=== PATIENT | male | born 1950 | race Caucasian/White ===

== ENCOUNTER → 2016-06-28 | Outpatient (CLI) | payer MEDICARE ==
[2016-06-28 10:35] LABS: Basophils % (A) 1 %; CH 30.9; CHCM 34.5; Eosinophils # (A) 0.1 k/uL (0-0.7); Eosinophils % (A) 3 %; HCT 49.5 % (39.0-53.0); HGB 16.7 gm/dL (13.0-17.5); Luc # (Auto) 0.14; Luc % (Auto) 2; Lymphocytes # (A) 2.1 k/uL (1.0-4.8); Lymphocytes % (A) 37 %; MCH 30.3 pg (25.0-35.0); MCHC 33.8 g/dL (31.0-37.0); MCV 89.8 fL (80.0-100.0); Mean Platelet Volume 6.5; Monocytes # (A) 0.4 k/uL (0-1.0); Monocytes % (A) 6 %; Neutrophils # (A) 2.9 k/uL (1.3-7.7); Neutrophils % (A) 52 %; RBC 5.52 m/uL (4.30-5.90); RDW 13.6 % (11.5-15.5); WBC 5.7 k/uL (3.8-10.6); WBC (Perox) 6.08
[2016-06-28 10:45] LABS: Bilirubin, Delta 0.3 mg/dL (0.0-0.2); Total Bilirubin 1.3 mg/dL (0.2-1.3); Total Protein 7.6 g/dL (6.3-8.2)
[2016-06-30 15:18] LABS: Hepatits C Virus RNA, Quant <12 IU/mL (<12); LOG HCV IU/mL <1.08 (<1.08)
== END | disposition home or self-care (01) ==
LOC: LABWHC1 09:59
PROVIDERS: ATTEND Physician Assistant
DX: B18.2 Chronic viral hepatitis C (principal)
CPT/HCPCS: 36415; 80076; 85025; 87522

== ENCOUNTER → 2016-12-31 | Outpatient (CLI) | payer MEDICARE ==
[2016-12-31 10:17] LABS: Basophils % (A) 1 %; Eosinophils # (A) 0.2 k/uL (0-0.7); Eosinophils % (A) 2 %; HCT 51.1 % (39.0-53.0); HDW 2.54; HGB 17.2 gm/dL (13.0-17.5); Luc # (Auto) 0.12; Luc % (Auto) 2; Lymphocytes % (A) 30 %; MCH 30.8 pg (25.0-35.0); MCHC 33.6 g/dL (31.0-37.0); MCV 91.5 fL (80.0-100.0); Mean Platelet Volume 6.6; Monocytes # (A) 0.3 k/uL (0-1.0); Monocytes % (A) 5 %; Neutrophils % (A) 61 %; RBC 5.59 m/uL (4.30-5.90); RDW 13.3 % (11.5-15.5); WBC 6.6 k/uL (3.8-10.6); WBC (Perox) 6.37
[2016-12-31 10:35] LABS: Bilirubin, Delta 0.2 mg/dL (0.0-0.2); Total Bilirubin 1.5 mg/dL (0.2-1.3); Total Protein 7.3 g/dL (6.3-8.2)
[2017-01-03 14:08] LABS: Hepatits C Virus RNA, Quant <12 IU/mL (<12); LOG HCV IU/mL <1.08 (<1.08)
== END | disposition home or self-care (01) ==
LOC: LABWHC1 09:19
PROVIDERS: ATTEND Physician Assistant
DX: B18.2 Chronic viral hepatitis C (principal)
CPT/HCPCS: 36415; 80076; 85025; 87522

== ENCOUNTER → 2017-07-01 | Outpatient (CLI) | payer MEDICARE ==
--- NOTE | 2017-07-01 10:50 | FL ---
EXAMINATION: Upper GI with small bowel follow through DATE: 07/01/2017 CLINICAL INDICATION: 67-year-old male right upper quadrant pain with nausea, vomiting, and some const ipation ongoing for 3 years. COMPARISON: Correlation CT 10/03/2015 Total Fluoroscopy Time: 1 minute 54 seconds. Total images: 72 FINDINGS: Blackjack Supervisor image shows possible staghorn calculus measuring 2.0 cm involving the right kidney/collecting s ystem. The esophagus has a normal course, caliber, and mucosa. Mild tertiary peristaltic contractions are de monstrated. No hiatal hernia is identified. There is no gastroesophageal reflux identified with Valsalva or positional maneuvers. The stomach and duodenum are free of any persistent filling defect and demonstrate a normal mucosal p attern. Following administration of barium, serial films were carried out to 1 hour. Barium is seen to reach the colon. Loops of jejunum and ileum are compressed and examined under fluoroscopy. The small bowel loops have a normal-caliber. Mucosal pattern is within normal limits. No intrinsic or extrinsic process is suspected. IMPRESSION: 1. Aside from some mild tertiary peristaltic waves in the esophagus, likely age-related change, amanda l upper GI and small bowel examination 2. Right renal calculus now measures 2 cm, larger from 2016. This may represent a staghorn calculus i n the collecting system.
== END | disposition home or self-care (01) ==
LOC: RADFLMAIN 07:39
PROVIDERS: ATTEND Internal Medicine
DX: R10.31 Right lower quadrant pain (principal)
CPT/HCPCS: 74245

== ENCOUNTER → 2017-08-30 | Outpatient (CLI) | payer MEDICARE ==
[2017-08-30 08:24] LABS: Basophils % (A) 1 %; Eosinophils # (A) 0.1 k/uL (0-0.7); Eosinophils % (A) 2 %; HCT 49.2 % (39.0-53.0); HGB 16.6 gm/dL (13.0-17.5); Lymphocytes # (A) 2.1 k/uL (1.0-4.8); Lymphocytes % (A) 33 %; MCH 30.5 pg (25.0-35.0); MCHC 33.7 g/dL (31.0-37.0); MCV 90.5 fL (80.0-100.0); Mean Platelet Volume 6.5; Monocytes # (A) 0.3 k/uL (0-1.0); Monocytes % (A) 5 %; Neutrophils # (A) 3.8 k/uL (1.3-7.7); Neutrophils % (A) 58 %; Platelet Count 172 k/uL (150-450); RBC 5.44 m/uL (4.30-5.90); RDW 14.5 % (11.5-15.5); WBC 6.5 k/uL (3.8-10.6)
[2017-08-30 08:32] LABS: Appearance,Urine Cloudy (Clear); Bilirubin,Urine Negative (Negative); Blood,Urine Trace (Negative); Color,Urine Yellow; Glucose,Urine (UA) Negative (Negative); Ketones,Urine Negative (Negative); Leukocyte Esterase,Urine Negative (Negative); Mucus,Urine Moderate /hpf; Nitrite,Urine Negative (Negative); Protein,Urine 1+ (Negative); RBC,Urine 3 /hpf (0-5); Specific Gravity,Urine 1.023 (1.001-1.035); Squamous Epithelial Cell,Urine <1 /hpf (0-4); WBC,Urine 6 /hpf (0-5)
[2017-08-30 08:49] LABS: Calcium 9.5 mg/dL (8.4-10.2); Potassium 4.4 mmol/L (3.5-5.1)
== END | disposition home or self-care (01) ==
LOC: LABPAT 07:46
PROVIDERS: ATTEND Urology
DX: Z01.818 Encounter for other preprocedural examination (principal); N20.0 Calculus of kidney; B19.20 Unspecified viral hepatitis C without hepatic coma; Z79.899 Other long term (current) drug therapy; Z01.812 Encounter for preprocedural laboratory examination
CPT/HCPCS: 36415; 80048; 81001; 85025; 87086; 93005

== ENCOUNTER 2017-09-07 06:07 | Day surgery (SDC) | payer MEDICARE ==
[2017-09-01 12:35] VITALS: BMI 30.2
[~2017-09-07 06:07] MED LIST: DEXAMETHASONE SOD PHOSPHATE 10 MG/ML 1 ML VIAL IV ONE; LIDOCAINE 1% 20 ML VIAL (10MG/ML) FOR IV START INTRADERMA PRN; MIDAZOLAM 2 MG/2 ML VIAL IV PRN; SCOPOLAMINE 1.5MG/72HR PATCH TRANSDERM ONE; ceFAZolin 1,000 MG in DEXTROSE/WATER 1 50ML.BAG IV ONE; fentaNYL (PF) 50 MCG/ML 2 ML AMP IV PRN
[2017-09-07] MEDS: LACTATED RINGERS 1,000 ML IV SCH (06:56)
[2017-09-07] MEDS ORDERED: SUCCINYLCHOLINE CHLORIDE 100 MG/5 ML SYR IV ONE (07:36)
[2017-09-07] MEDS ORDERED: ePHEDrine SULFATE/0.9% NACL/PF 50 MG/5 ML SYRINGE IV ONE (07:36)
[2017-09-07] MEDS ORDERED: GLYCOPYRROLATE 0.2 MG/ML 2 ML VIAL ONE (07:36)
[2017-09-07] MEDS ORDERED: ROCURONIUM BROMIDE 10 MG/ML 10 ML VIAL IV ONE (07:36)
[2017-09-07] MEDS ORDERED: fentaNYL (PF) 50 MCG/ML 2 ML AMP ONE (07:36)
[2017-09-07] MEDS ORDERED: WATER FOR INJECTION, STERILE 10 ML VIAL IV ONE (07:36)
[2017-09-07] MEDS ORDERED: MIDAZOLAM 2 MG/2 ML VIAL ONE (07:36)
[2017-09-07] MEDS ORDERED: PROPOFOL 10 MG/ML 20 ML VIAL IV ONE (07:36)
[2017-09-07] MEDS ORDERED: NEOSTIGMINE 1 MG/ML 10 ML VIAL ONE (07:36)
[2017-09-07] MEDS ORDERED: LACTATED RINGERS 1,000 ML IV ONE (08:15)
[2017-09-07] MEDS ORDERED: IOPAMIDOL-370 50ML BTL MISCELLANE ONE (08:21)
--- NOTE | 2017-09-07 08:58 | XR ---
EXAMINATION TYPE: XR KUB DATE OF EXAM: 09/07/2017 COMPARISON: NONE INDICATION: Urinary calculus presurgical TECHNIQUE: Single view abdomen supine view FINDINGS: There is a nonspecific bowel gas pattern present. Air is within small bowel loops as well as the colo n. Psoas margins are normal. No organomegaly is present. There appears to be a conglomeration of several small lymph nodes in tight approximation with a total volume of approximately 1.6 x 1.1 cm in size at the right renal pelvis. Additional suspicious calcif ications are not identified. Small phlebolith is likely within the left hemipelvis. IMPRESSION: 1. Technically grouped or irregular right renal pelvic calcification measuring approximately 1.6 x 1. 1 cm.
[2017-09-07] MEDS ORDERED: MAG HYDROX/AL HYDROX/SIMETH 30 ML CUP PO PRN (09:41)
[2017-09-07] MEDS ORDERED: ONDANSETRON 4 MG/2 ML VIAL IVP PRN (09:41)
[2017-09-07] MEDS ORDERED: ACETAMINOPHEN TAB 325 MG TAB PO PRN (09:41)
[2017-09-07] MEDS ORDERED: NALOXONE 0.4 MG/ML 1 ML VIAL IV PRN (09:42)
[2017-09-07] MEDS ORDERED: HYDROmorphone PCA 5 MG/25 ML SYRINGE IV PRN (09:42)
--- NOTE | 2017-09-07 09:47 | P.OP ---
Date of Procedure: 09/07/17 Preoperative Diagnosis: Right renal calculi large Postoperative Diagnosis: Same Procedure(s) Performed: Cystoscopy, placement of 5-Turkmen occluding balloon catheter right, percutaneous nephrostomy (Dr. Sarmiento) percutaneous nephrostolithotomy with ultrasound, placement of 10 J nephrostomy Anesthesia: NETO Surgeon: Mikel Bentley Estimated Blood Loss (ml): 200 Pathology: other (Stone) Condition: stable Disposition: PACU Indications for Procedure: The patient is a 67-year-old gentleman with a 2 cm and 1 cm right renal pelvic stones and comes for percutaneous nephrostolithotomy Description of Procedure: Patient is brought to the operating suite. He is given a general endotracheal anesthesia on the transport gurney. He's placed in a frog position with a sterile prep and drape. Cystoscopy with a 22-Turkmen sheath and Foroblique lens identifies a normal urethra, the prostate is not obstructing. The right ureteral orifice is identified and intubated with a 5-Turkmen occluding balloon catheter. This is passed up into the renal pelvis The patient is placed in a prone position with care to airways and extremities. Dr. Sarmiento of radiology performed percutaneous access to a right middle pole calyx. We dilate the tract to 30-Turkmen. I passed into the renal pelvis and find a 2 cm william stone that is broken up into small pieces with ultrasound and removed. Then there is a another single centimeter stone that is grasped and removed. Then pass the flexible nephroscope throughout the collecting system as well as intraoperative nephroscopy and see no remaining stones. A 10-Turkmen J nephrostomy tubes placed over the working wire. It is placed into the renal pelvis. It is secured the skin with 2-0 silk. The sheath is removed the ureteral catheters removed the patient is awakened and returned recovery room good condition. Blood loss is approximately 200 mL
[2017-09-07] MEDS: HYDROmorphone 1 MG/ML 1 ML SYRINGE IVP ONE ×2 (10:10→10:15)
[2017-09-07] MEDS: KETOROLAC 30 MG/ML 1 ML VIAL IVP PRN ×2 (10:10→15:39)
[2017-09-07] MEDS: MEPERIDINE 50 MG/ML SYRINGE IVP ONE ×2 (10:21→10:29)
--- NOTE | 2017-09-07 10:45 | FL ---
EXAMINATION TYPE: FL Perc Nephrostomy New Access DATE OF EXAM: 09/07/2017 COMPARISON: NONE HISTORY: Right-sided nephrolithiasis. PROCEDURE: Maximal barrier technique was utilized. The skin overlying the right kidney was localized using fluo roscopy and the overlying skin prepped and draped. Lidocaine used for local anesthesia. Skin ramya w as made with a scalpel. Access was gained under fluoroscopy, following placement of a ureteral occlu lynnette balloon by the referring clinician and instillation of air in the renal collecting system with a 21-gauge needle to the kidney. A suitable posterior calyx was chosen. A 0.018 inch wire was LinguaSys. Ureter was negotiated with a angled Glidewire and Kumpe catheter. The access site was dilated an d subsequently a sheath was advanced into the renal pelvis following dilation with balloon along the tract. Urine returned in the hub of the catheter. The patient underwent nephrolithotomy by the referr ing clinician. The patient remained in stable condition without complication. The patient was disc harged to observation. 14 minutes 51 seconds fluoroscopy time, 2 intraoperative C-arm images document the procedure IMPRESSION: STATUS POST NEPHROSTOMY PLACEMENT FOR NEPHROLITHOTOMY WITH FLUOROSCOPIC GUIDANCE. THIS PROCEDURE PER FORMED BY THE UNDERSIGNED.
[2017-09-07] MEDS ORDERED: NICOTINE 21MG/24HR PATCH TRANSDERM SCH (11:15)
[2017-09-07] MEDS ORDERED: NICODERM CQ TOPICAL SCH (11:46)
[2017-09-07] MEDS: DEXTROSE 5%-0.45% NACL 1,000 ML IV SCH ×2 (12:08→19:26)
[2017-09-07] MEDS ORDERED: SODIUM CHLORIDE 0.9% 500 ML IV ONE ×2 (13:27→15:18)
[2017-09-07 15:51] LABS: Basophils % (A) 0 %; Eosinophils % (A) 0 %; HCT 42.8 % (39.0-53.0); HGB 14.5 gm/dL (13.0-17.5); Lymphocytes # (A) 0.6 k/uL (1.0-4.8); Lymphocytes % (A) 6 %; MCH 30.4 pg (25.0-35.0); MCV 89.5 fL (80.0-100.0); Mean Platelet Volume 6.3; Monocytes # (A) 0.3 k/uL (0-1.0); Monocytes % (A) 3 %; Neutrophils # (A) 9.1 k/uL (1.3-7.7); Neutrophils % (A) 90 %; Platelet Count 172 k/uL (150-450); RBC 4.78 m/uL (4.30-5.90); RDW 13.8 % (11.5-15.5); WBC 10.1 k/uL (3.8-10.6)
[2017-09-07] MEDS ORDERED: SODIUM CHLORIDE 0.9% 1,000 ML IV ONE (17:06)
[2017-09-08 02:58] VITALS: RESP 16
[2017-09-08] MEDS: LACTATED RINGERS 1,000 ML IV SCH (05:07)
[2017-09-08] MEDS: DEXTROSE 5%-0.45% NACL 1,000 ML IV SCH ×2 (05:11→08:07)
--- NOTE | 2017-09-08 06:38 | P.DS ---
Providers Attending physician: Mikel Bentley Primary care physician: Leonard Morse Hospital Course: The patient was admitted 09/07/2017 for a percutaneous nephrostolithotomy to a large right renal stone. The patient underwent this without problems. The procedure he moved all the stone. Postoperatively he did well. His urine cleared overnight. This morning he feels well. His pain is under control. His diet is regular. He'll be discharged home with the nephrostomy tube. He' ll follow-up in the office on Tuesday for nephrostomy tube removal. He is given a prescription of [place] for pain. Postoperative instructions been given. Patient Condition at Discharge: Good Plan - Discharge Summary Discharge Rx Participant: Yes New Discharge Prescriptions: New Hydrocodone/Acetaminophen [[place] 5-325] 1 tab PO Q6HR PRN 3 Days #12 tab PRN Reason: Pain Discharge Medication List Hydrocodone/Acetaminophen [[place] 5-325] 1 tab PO Q6HR PRN 3 Days #12 tab [Rx] Follow up Appointment(s)/Referral(s): Mikel Bentley MD [STAFF PHYSICIAN] - 1 Week Activity/Diet/Wound Care/Special Instructions: home with nephrostomy tube Discharge Disposition: HOME SELF-CARE
[2017-09-08] MEDS ORDERED: HYDROcodone/APAP 5-325MG 1 EACH TAB PO PRN (07:25)
[2017-09-08 07:52] VITALS: BP 122/59; PULSE 68; TEMP 98.3
== END 2017-09-08 12:00 | disposition home or self-care (01) ==
LOC: OR 06:07 → 3SUR 09:30 → OR 09-08 12:00
PROVIDERS: ATTEND Urology
DX: N20.0 Calculus of kidney (principal); B19.20 Unspecified viral hepatitis C without hepatic coma; F17.210 Nicotine dependence, cigarettes, uncomplicated; Z85.828 Personal history of other malignant neoplasm of skin; Z87.442 Personal history of urinary calculi
CPT/HCPCS: 50080; 52005; 94760; 94762; 85025; 82365; 50432; 74018; C1769 ×3; C2628; C1894; C1729; J2250; J1100; J2710; J2175; J2405; J3010; J1885; J1170 ×2; J0690; J0330; J2704; Q9967; 86850; 86900; 86901

== ENCOUNTER 2017-09-10 11:51 | Emergency (ER) | payer MEDICARE ==
[2017-09-10 11:57] VITALS: RESP 18
[2017-09-10 12:38] LABS: Basophils % (A) 0 %; Eosinophils # (A) 0.1 k/uL (0-0.7); Eosinophils % (A) 2 %; HCT 38.1 % (39.0-53.0); HGB 12.9 gm/dL (13.0-17.5); Lymphocytes # (A) 1.7 k/uL (1.0-4.8); Lymphocytes % (A) 31 %; MCH 29.9 pg (25.0-35.0); MCV 88.1 fL (80.0-100.0); Mean Platelet Volume 6.9; Monocytes # (A) 0.3 k/uL (0-1.0); Monocytes % (A) 6 %; Neutrophils # (A) 3.1 k/uL (1.3-7.7); Neutrophils % (A) 59 %; Platelet Count 156 k/uL (150-450); RBC 4.33 m/uL (4.30-5.90); RDW 13.3 % (11.5-15.5); WBC 5.3 k/uL (3.8-10.6)
[2017-09-10 12:45] LABS: Albumin 3.8 g/dL (3.5-5.0); Calcium 9.1 mg/dL (8.4-10.2); Magnesium 2.3 mg/dL (1.6-2.3); Potassium 4.3 mmol/L (3.5-5.1); Total Bilirubin 1.1 mg/dL (0.2-1.3); Total Protein 6.1 g/dL (6.3-8.2)
[2017-09-10 12:54] LABS: Creatine Kinase 70 U/L (55-170)
[2017-09-10 12:55] LABS: INR 1.1 (<1.2); Partial Thromboplastin Time 21.9 sec (22.0-30.0); Prothrombin Time 10.5 sec (9.0-12.0)
[2017-09-10 13:05] LABS: Appearance,Urine Clear (Clear); Bilirubin,Urine Negative (Negative); Blood,Urine Moderate (Negative); Color,Urine Light Yellow; Glucose,Urine (UA) Negative (Negative); Ketones,Urine Negative (Negative); Leukocyte Esterase,Urine Trace (Negative); Nitrite,Urine Negative (Negative); Protein,Urine Negative (Negative); RBC,Urine 5 /hpf (0-5); Specific Gravity,Urine 1.002 (1.001-1.035); Urobilinogen,Urine <2.0 mg/dL (<2.0); WBC,Urine 5 /hpf (0-5)
[2017-09-10 13:07] LABS: Creatine Kinase MB 0.7 ng/mL (0.0-2.4); Troponin I <0.012 ng/mL (0.000-0.034)
[2017-09-10 13:32] VITALS: BP 135/72; PULSE 87
--- NOTE | 2017-09-10 13:40 | ED ---
General Adult HPI - General Chief complaint: Urogenital Stated complaint: POST OP BLOOD CLOTS IN CATHETER Time Seen by Provider: 09/10/17 11:59 Source: patient, family, RN notes reviewed, old records reviewed Mode of arrival: wheelchair Limitations: no limitations - History of Present Illness Initial comments: 67-year-old male presents with right flank pain. Patient is 3 days postop percutaneous nephrostomy tube and removal of large nephrolithiasis from the renal pelvis. Patient states he has been doing well postoperatively. He has had some blood clots and blood drainage into his nephrostomy tube collection bag. Today he had some worsening flank pain, he took her [place] which improved his pain. He did notice at this time. He had a blood clot in the distal end of the catheter. This was removed and his symptoms seemed to improve with both pain medication and increased urinary flow. He is asymptomatic at the time my evaluation. No fever or chills. Normal urine output. Patient is scheduled to see urology on Tuesday for follow-up. - Related Data Previous Rx's Medication Instructions Recorded Hydrocodone/Acetaminophen [[place] 1 tab PO Q6HR PRN 3 Days #12 tab 09/08/17 5-325] Docusate [Colace] 100 mg PO BID #30 capsule 09/10/17 Allergies Allergy/AdvReac Type Severity Reaction Status Date / Time No Known Allergies Allergy Verified 09/10/17 11:54 Review of Systems ROS Statement: Those systems with pertinent positive or pertinent negative responses have been documented in the HPI. ROS Other: All systems not noted in ROS Statement are negative. Past Medical History Additional Past Medical History / Comment(s): kidney stone retreival with neprostomy placed History of Any Multi-Drug Resistant Organisms: None Reported Additional Past Surgical History / Comment(s): kidney surgery r/t kidney stone ( golf ball sized) Past Psychological History: No Psychological Hx Reported Smoking Status: Current some day smoker Past Alcohol Use History: Rare Past Drug Use History: None Reported General Exam Limitations: no limitations General appearance: alert, in no apparent distress Head exam: Present: atraumatic, normocephalic Eye exam: Present: normal appearance, PERRL ENT exam: Present: normal exam Neck exam: Present: normal inspection Respiratory exam: Present: normal lung sounds bilaterally. Absent: respiratory distress Cardiovascular Exam: Present: regular rate, normal rhythm GI/Abdominal exam: Present: soft, distended. Absent: tenderness, guarding, rebound, rigid Extremities exam: Present: normal capillary refill. Absent: pedal edema Back exam: Present: other (Right-sided nephrostomy tube, there is no purulent drainage, there is ecchymosis throughout the flank. Dressing is clean dry and intact.) Neurological exam: Present: alert, oriented X3. Absent: motor sensory deficit Psychiatric exam: Present: normal affect, normal mood Skin exam: Present: warm, dry Course Vital Signs 09/10/17 09/10/17 09/10/17 11:54 13:30 13:50 Temperature 98.4 F 98.3 F Pulse Rate 91 87 Respiratory 18 18 Rate Blood Pressure 166/90 135/72 O2 Sat by Pulse 100 99 Oximetry Medical Decision Making - Medical Decision Making 67-year-old male with flank pain and concern for obstructed nephrostomy tube. Obstruction is opened prior to arrival. There is a clot in the distal end of the tube, this is removed. Patient is pain-free. Laboratory studies are obtained, normal white blood cell count, hemoglobin is down however appear stable at 12.9. Electrolytes within normal limits, normal kidney function, urinalysis shows a small amount of blood cells which is expected. Given that the patient is 3 days postop case is discussed with Dr. Bates who recommends outpatient follow-up at this time. - Lab Data Result diagrams: 09/10/17 11:55 09/10/17 11:55 Lab Results 09/10/17 09/10/17 09/10/17 Range/Units 11:55 11:55 11:55 WBC 5.3 (3.8-10.6) k/uL RBC 4.33 (4.30-5.90) m/uL Hgb 12.9 L (13.0-17.5) gm/dL Hct 38.1 L (39.0-53.0) % MCV 88.1 (80.0-100.0) fL MCH 29.9 (25.0-35.0) pg MCHC 34.0 (31.0-37.0) g/dL RDW 13.3 (11.5-15.5) % Plt Count 156 (150-450) k/uL Neutrophils % 59 % Lymphocytes % 31 % Monocytes % 6 % Eosinophils % 2 % Basophils % 0 % Neutrophils # 3.1 (1.3-7.7) k/uL Lymphocytes # 1.7 (1.0-4.8) k/uL Monocytes # 0.3 (0-1.0) k/uL Eosinophils # 0.1 (0-0.7) k/uL Basophils # 0.0 (0-0.2) k/uL PT (9.0-12.0) sec INR (<1.2) APTT (22.0-30.0) sec Sodium 137 (137-145) mmol/L Potassium 4.3 (3.5-5.1) mmol/L Chloride 101 (98-107) mmol/L Carbon Dioxide 28 (22-30) mmol/L Anion Gap 8 mmol/L BUN 12 (9-20) mg/dL Creatinine 1.00 (0.66-1.25) mg/dL Est GFR (CKD-EPI)AfAm 90 (>60 ml/min/1.73 sqM) Est GFR (CKD-EPI)NonAf 78 (>60 ml/min/1.73 sqM) Glucose 148 H (74-99) mg/dL Calcium 9.1 (8.4-10.2) mg/dL Magnesium 2.3 (1.6-2.3) mg/dL Total Bilirubin 1.1 (0.2-1.3) mg/dL AST 29 (17-59) U/L ALT 28 (21-72) U/L Alkaline Phosphatase 51 (38-126) U/L Total Creatine Kinase 70 (55-170) U/L CK-MB (CK-2) 0.7 (0.0-2.4) ng/mL CK-MB (CK-2) Rel Index 1.0 Troponin I <0.012 (0.000-0.034) ng/mL Total Protein 6.1 L (6.3-8.2) g/dL Albumin 3.8 (3.5-5.0) g/dL Urine Color Urine Appearance (Clear) Urine pH (5.0-8.0) Ur Specific Edmond (1.001-1.035) Urine Protein (Negative) Urine Glucose (UA) (Negative) Urine Ketones (Negative) Urine Blood (Negative) Urine Nitrite (Negative) Urine Bilirubin (Negative) Urine Urobilinogen (<2.0) mg/dL Ur Leukocyte Esterase (Negative) Urine RBC (0-5) /hpf Urine WBC (0-5) /hpf Blood Type Blood Type Recheck Antibody Screen Spec Expiration Date 09/10/17 09/10/17 09/10/17 Range/Units 11:55 11:55 12:38 WBC (3.8-10.6) k/uL RBC (4.30-5.90) m/uL Hgb (13.0-17.5) gm/dL Hct (39.0-53.0) % MCV (80.0-100.0) fL MCH (25.0-35.0) pg MCHC (31.0-37.0) g/dL RDW (11.5-15.5) % Plt Count (150-450) k/uL Neutrophils % % Lymphocytes % % Monocytes % % Eosinophils % % Basophils % % Neutrophils # (1.3-7.7) k/uL Lymphocytes # (1.0-4.8) k/uL Monocytes # (0-1.0) k/uL Eosinophils # (0-0.7) k/uL Basophils # (0-0.2) k/uL PT 10.5 (9.0-12.0) sec INR 1.1 (<1.2) APTT 21.9 L (22.0-30.0) sec Sodium (137-145) mmol/L Potassium (3.5-5.1) mmol/L Chloride (98-107) mmol/L Carbon Dioxide (22-30) mmol/L Anion Gap mmol/L BUN (9-20) mg/dL Creatinine (0.66-1.25) mg/dL Est GFR (CKD-EPI)AfAm (>60 ml/min/1.73 sqM) Est GFR (CKD-EPI)NonAf (>60 ml/min/1.73 sqM) Glucose (74-99) mg/dL Calcium (8.4-10.2) mg/dL Magnesium (1.6-2.3) mg/dL Total Bilirubin (0.2-1.3) mg/dL AST (17-59) U/L ALT (21-72) U/L Alkaline Phosphatase (38-126) U/L Total Creatine Kinase (55-170) U/L CK-MB (CK-2) (0.0-2.4) ng/mL CK-MB (CK-2) Rel Index Troponin I (0.000-0.034) ng/mL Total Protein (6.3-8.2) g/dL Albumin (3.5-5.0) g/dL Urine Color Light Yellow Urine Appearance Clear (Clear) Urine pH 6.0 (5.0-8.0) Ur Specific Edmond 1.002 (1.001-1.035) Urine Protein Negative (Negative) Urine Glucose (UA) Negative (Negative) Urine Ketones Negative (Negative) Urine Blood Moderate H (Negative) Urine Nitrite Negative (Negative) Urine Bilirubin Negative (Negative) Urine Urobilinogen <2.0 (<2.0) mg/dL Ur Leukocyte Esterase Trace H (Negative) Urine RBC 5 (0-5) /hpf Urine WBC 5 (0-5) /hpf Blood Type B Positive Blood Type Recheck No Antibody Screen NEGATIVE Spec Expiration Date 09/13/2017 - 7771 Disposition Clinical Impression: Nephrostomy tube bleed Disposition: HOME SELF-CARE Condition: Good Instructions: Hematuria (ED), Nephrostomy Tube Care (ED) Prescriptions: Docusate [Colace] 100 mg PO BID #30 capsule Is patient prescribed a controlled substance at d/c from ED?: No Referrals: Simone Charlton MD [Primary Care Provider] - 1-2 days Mikel Bentely MD [STAFF PHYSICIAN] - 1-2 days Time of Disposition: 13:40
[2017-09-10 14:01] VITALS: TEMP 98.3
== END 2017-09-10 13:50 | disposition home or self-care (01) ==
LOC: EC 11:51
DX: T83.83XA Hemorrhage due to genitourinary prosthetic devices, implants and grafts, initial encounter (principal); R14.0 Abdominal distension (gaseous); R10.9 Unspecified abdominal pain; F17.200 Nicotine dependence, unspecified, uncomplicated; Z98.890 Other specified postprocedural states
CPT/HCPCS: 36415; 80053; 81001; 82550; 82553; 83735; 84484; 85025; 85610; 85730; 86850; 86900; 86901; 99284

== ENCOUNTER → 2017-12-30 | Outpatient (CLI) | payer MEDICARE ==
[2017-12-30 10:45] LABS: Basophils % (A) 0 %; Eosinophils # (A) 0.2 k/uL (0-0.7); Eosinophils % (A) 3 %; HCT 48.4 % (39.0-53.0); HGB 16.1 gm/dL (13.0-17.5); Lymphocytes # (A) 1.7 k/uL (1.0-4.8); Lymphocytes % (A) 31 %; MCH 29.5 pg (25.0-35.0); MCHC 33.3 g/dL (31.0-37.0); MCV 88.5 fL (80.0-100.0); Mean Platelet Volume 6.6; Monocytes # (A) 0.3 k/uL (0-1.0); Monocytes % (A) 5 %; Neutrophils # (A) 3.3 k/uL (1.3-7.7); Neutrophils % (A) 59 %; Platelet Count 172 k/uL (150-450); RBC 5.47 m/uL (4.30-5.90); RDW 12.9 % (11.5-15.5); WBC 5.6 k/uL (3.8-10.6)
[2017-12-30 10:47] LABS: Bilirubin, Delta 0.2 mg/dL (0.0-0.2); Bilirubin,Unconjugated 0.4 mg/dL (0.0-1.1); Total Bilirubin 0.6 mg/dL (0.2-1.3); Total Protein 6.8 g/dL (6.3-8.2)
[2018-01-02 09:39] LABS: Hepatits C Virus RNA Not detected (Not detected); Hepatits C Virus RNA, Quant <12 IU/mL (<12); LOG HCV IU/mL <1.08 (<1.08)
== END | disposition home or self-care (01) ==
LOC: LABWHC1 08:38
PROVIDERS: ATTEND Physician Assistant
DX: B18.2 Chronic viral hepatitis C (principal)
CPT/HCPCS: 36415; 80076; 85025; 87522

== ENCOUNTER → 2018-08-07 | Outpatient (CLI) | payer MEDICARE ==
--- NOTE | 2018-08-07 08:32 | XR ---
Abdomen HISTORY: Right-sided abdomen pain, history of kidney stones Frontal view of the abdomen on 2 images correlated to prior exam 09/07/2017 Probable vascular calcifications are again noted in the pelvis. There is a spinal curvature, degenera tive disc changes in the visualized spine. Overlying bowel gas may obscure detail. No evident bowel o bstruction or pneumoperitoneum. Right 11th rib may be superimposed over calcification in the right an d possibly left kidney. IMPRESSION: Previously identified calcifications seen in the right kidney level are not seen with cer tainty. Difficult to exclude nephrolithiasis.
== END | disposition home or self-care (01) ==
LOC: RADXRMAIN 07:56
PROVIDERS: ATTEND Urology
DX: N20.0 Calculus of kidney (principal)
CPT/HCPCS: 74018

== ENCOUNTER → 2018-09-25 | Outpatient (CLI) | payer MEDICARE ==
--- NOTE | 2018-09-25 16:37 | XR ---
EXAMINATION TYPE: XR chest 2V DATE OF EXAM: 09/25/2018 COMPARISON: 03/05/2015 HISTORY: Cough TECHNIQUE: Frontal and lateral views of the chest are obtained. FINDINGS: Heart and mediastinum are within normal limits. Lungs are clear. Costophrenic angles are c lear. Bony thorax is intact. IMPRESSION: Normal chest. No change.
== END | disposition home or self-care (01) ==
LOC: RAD 15:34
PROVIDERS: ATTEND Internal Medicine
DX: F17.200 Nicotine dependence, unspecified, uncomplicated (principal); R05 Cough
CPT/HCPCS: 71046

== ENCOUNTER → 2022-11-26 | Outpatient (CLI) | payer MEDICARE ==
--- NOTE | 2022-11-26 11:15 | CTL ---
EXAMINATION TYPE: CT Low Dose Lung DATE OF EXAM ORDERED: 11/26/2022 HISTORY: 72-year-old male Z87.891 PERSONAL HISTORY OF NICOTINE DEPENDENCE. Former smoker with 35 pack -year history. Lung cancer screening CT DLP: [address] CTDI: 3.8 mGy Automated exposure control for dose reduction was used. SCREENING VISIT: Baseline COMPARISON: Radiograph 09/25/2018 TECHNIQUE: Low dose computed tomography scan was performed through the chest at 1 mm thick sections a nd reconstructed images in multiple planes at 1 mm and [address] DIAGNOSTIC QUALITY: Satisfactory FINDINGS: Heart normal size without pericardial effusion. Ectasia of the ascending aorta up to 3.9 cm. Mild atherosclerotic arch calcifications with convention al arch vessel branching anatomy. Ectasia of the descending thoracic aorta at 3.3 cm. No thoracic lymphadenopathy by CT size criteria. Lungs show scattered mild to moderate emphysematous change. Scattered strandy scarring is present mid and lower lungs. Prominent dependent atelectasis at the posterior lower lobes. Diffuse bronchial wal l thickening. There is a 6 mm posterior right midlung pulmonary nodule, axial image 90. 5 mm posterior right upper lobe pulmonary nodule, axial image 68. 5 mm posterior right upper lobe pulmonary nodule, axial image 57. 4 mm lateral right upper lobe pulmonary nodule, axial image 43 A number of additional 5 mm and smaller pulmonary nodules are present on both sides. No consolidation or pleural effusion. Visualized upper abdomen shows no gross abnormality. Anterior endplate spondylosis lower thoracic spine. IMPRESSION: 1. LungRADS 3, probably benign; scattered 6 mm and smaller bilateral pulmonary nodules on baseline sc reening. 2. COPD with mild to moderate emphysema and parenchymal scarring. CT LUNG RAD AND CT CHEST RECOMMENDATION: Lung-Rad 3 Probably Benign: 6 month follow-up LDCT. S Modifier (other clinically significant findings): None
== END | disposition home or self-care (01) ==
LOC: RADCTMAIN 06:04
PROVIDERS: ATTEND Internal Medicine
DX: Z12.2 Encounter for screening for malignant neoplasm of respiratory organs (principal); J43.9 Emphysema, unspecified; Z87.891 Personal history of nicotine dependence
CPT/HCPCS: 71271

== ENCOUNTER → 2022-12-27 | Outpatient (CLI) | payer MEDICARE | END | disposition home or self-care (01) | LOC: RADUSWWP 09:00 | PROVIDERS: ATTEND Internal Medicine | DX: Z53.9 Procedure and treatment not carried out, unspecified reason (principal) ==

== ENCOUNTER → 2023-06-09 | Outpatient (CLI) | payer MEDICARE ==
--- NOTE | 2023-06-09 12:35 | CTL ---
EXAMINATION TYPE: CT Low Dose Lung DATE OF EXAM ORDERED: 06/09/2023 HISTORY: . Lung cancer screening CT DLP: [address] CTDI: 4.1 mGy Automated exposure control for dose reduction was used. SCREENING VISIT: Follow-up. COMPARISON: 11/26/2022. TECHNIQUE: Low dose computed tomography scan was performed through the chest at 1 mm thick sections a nd reconstructed images in multiple planes at 1 mm and [address] DIAGNOSTIC QUALITY: Satisfactory FINDINGS: LUNG NODULES: Scattered pulmonary nodules seen throughout the lungs bilaterally measuring less than 6 mm in diameter are unchanged since the previous examination.. LUNGS: COPD: Severity: There is mild diffuse centrilobular emphysema. Fibrosis: Severity: None Lymph nodes: No adenopathy. Other findings: RIGHT PLEURAL SPACE: Effusion: None Calcification: None Thickening: None Pneumothorax: None LEFT PLEURAL SPACE: Effusion: None Calcification: Moderate vascular desiccation is seen within the thoracic aorta without evidence of an eurysmal dilation. Correlate calcium is seen within the left coronary artery. Thickening: None Pneumothorax: None HEART: Heart Size: Normal Coronary Calcification: None Pericardial Effusion: None OTHER FINDINGS: Upper abdomen: None Bony thorax: None Supraclavicular region: None Other: None IMPRESSION: 1. Unchanged small pulmonary nodules. 2. Mild emphysema. 3. Mild coronary artery calcification. CT LUNG RAD AND CT CHEST RECOMMENDATION: Lung-Rad 2 Benign Appearance or Behavior: Continue annual sc reening with LDCT in 12 months.
== END | disposition home or self-care (01) ==
LOC: RADCTMAIN 06:16
PROVIDERS: ATTEND Internal Medicine
DX: Z12.2 Encounter for screening for malignant neoplasm of respiratory organs (principal); J43.2 Centrilobular emphysema; I25.10 Atherosclerotic heart disease of native coronary artery without angina pectoris; R91.8 Other nonspecific abnormal finding of lung field; Z87.891 Personal history of nicotine dependence
CPT/HCPCS: 71271

== ENCOUNTER → 2024-02-06 | Outpatient (CLI) | payer MEDICARE ==
[2024-02-06 08:24] LABS: African American GFR (CKD) 66 (>60 ml/min/1.73 sqM); Blood Urea Nitrogen 19 mg/dL (9-20); Non-African American GFR(CKD) 57 (>60 ml/min/1.73 sqM)
--- NOTE | 2024-02-11 09:33 | CT ---
EXAMINATION TYPE: CT neck chest w con DATE OF EXAM: 02/06/2024 9:11 AM COMPARISON: None. CLINICAL INDICATION: Male, 74 years old with history of R91.8 pulmonary nodules, PULMONARY NODULE/RIG HT POSTERIOR NECK LUMP TECHNIQUE: Axial images at 3 mm thick sections. Reconstructed images in the coronal plane and sagitt al plane are reviewed. Contrast used:100 mL of Isovue 300 with IV Contrast, (none if empty) Oral contrast used: (none if empty) CT DLP: 1540.5 mGycm, Automated exposure control for dose reduction was used. FINDINGS: Limited CT sections are obtained the lung apices. Lung johnson are evaluated on the CT chest. CT neck: The torus tubarius and fossa of Rosenmuller are normal. Web Content Manager spaces are normal. Rete ntion cysts within the right maxillary sinus. Remaining paranasal sinuses and mastoid air cells are c lear. Parotid glands appear normal and symmetrical. Submandibular glands, are normal. Parapharyngeal spac es are normal. No suspicious adenopathy is evident. Small submandibular lymphadenopathy is evident o n the right. Small left neck posterior triangle lymph nodes are present. The hypopharynx appears within normal limits. Vocal cord level appear symmetrical. Thyroid as visualized is normal. Degenerative changes are within the cervical spine. IMPRESSION: 1. No suspicious abnormality CT Neck EXAMINATION TYPE: CT neck chest w con DATE OF EXAM: 02/06/2024 9:11 AM COMPARISON: 06/09/2023 CLINICAL INDICATION: Male, 74 years old with history of R91.8 pulmonary nodules, PULMONARY NODULE/RIG HT POSTERIOR NECK LUMP TECHNIQUE: Axial images were obtained at 5 mm thick sections. Reconstructed images are reviewed on [employer] computer in the coronal plane. Contrast used:100 mL of Isovue 300 with IV Contrast, (none if empty) Oral contrast used: (none if empty) CT DLP: 1540.5 mGycm, Automated exposure control for dose reduction was used. FINDINGS: Portion of the thyroid visualized is normal. There is a 0.3 cm nodule posterior lateral right upper lobe. Series 6 image 20 is stable in compariso n. Slightly more inferior the second punctate nodule 0.3 cm. 0.4 cm series 6. No suspicious infiltra josué. There is a 0.6 cm nodule just above the left diaphragm. Series 6 image 50. This appears stable from c omparison No enlarged mediastinal or hilar adenopathy is evident. The ascending aorta diameter at the level o f the main pulmonary artery is 3.9 cm. The main pulmonary artery diameter at the bifurcation is 2.8 cm. Coronary artery calcification is present. Limited CT sections are obtained through the upper abdomen. Small cortical renal cyst on left kidney. IMPRESSION: 1. Stable small nodules. Follow-up low-dose CT chest 6 months. [facility], , 02/11/2024 9:31 AM
== END | disposition home or self-care (01) ==
LOC: RADCTMAIN 07:42
PROVIDERS: ATTEND Internal Medicine
DX: M47.812 Spondylosis without myelopathy or radiculopathy, cervical region (principal); R91.8 Other nonspecific abnormal finding of lung field
CPT/HCPCS: 82565; 84520; 70491; 71260; 36415; Q9967

== ENCOUNTER → 2024-09-12 | Outpatient (CLI) | payer MEDICARE ==
[2024-09-12 07:56] LABS: African American GFR (CKD) 68 (>60 ml/min/1.73 sqM); Blood Urea Nitrogen 23 mg/dL (9-20); Non-African American GFR(CKD) 59 (>60 ml/min/1.73 sqM)
--- NOTE | 2024-09-12 10:41 | US ---
EXAMINATION TYPE: US carotid duplex BILAT DATE OF EXAM: 09/12/2024 COMPARISON: US 12/27/2022 CLINICAL INDICATION: Male, 74 years old with history of I65.23 CAROTID STENOSIS; Follow up Additional History: .... TECHNIQUE: Grayscale, color Doppler and spectral Doppler evaluation of the bilateral carotid systems and vertebral arteries. Indirect Doppler criteria was utilized. FINDINGS: EXAM MEASUREMENTS: RIGHT: Peak Systolic Velocity (PSV) cm/sec ----- Right CCA: 50.5 ----- Right ICA: 73.6 ----- Right ECA: 78.8 ICA/CCA ratio: 1.5 RIGHT: End Diastole cm/sec ----- Right CCA: 14.2 ----- Right ICA: 21.9 ----- Right ECA: 7.6 LEFT: Peak Systolic Velocity (PSV) cm/sec ----- Left CCA: 51.1 ----- Left ICA: 72.6 ----- Left ECA: 50.3 ICA/CCA ratio: 1.4 LEFT: End Diastole cm/sec ----- Left CCA: 13.6 ----- Left ICA: 23.0 ----- Left ECA: 0.0 VERTEBRALS (direction of flow): Right Vertebral: Antegrade Left Vertebral: Antegrade Rhythm: Normal DIRECTOR TRIAL NOTES: Color Doppler imaging shows patency with blood flow throughout the carotid artery. Spectral waveforms are within normal limits. IMPRESSION: Right: No hemodynamically significant stenosis based on velocities. Left: No hemodynamically significant stenosis based on velocities. Exam limited by vessel tortuosity. Criteria for Assigning % of Stenosis / Diameter reduction (Estimation based on the indirect measurements of the internal carotid artery velocities (ICA PSV). 1. Normal (no stenosis)=ICA PSV < 180 cm/s: ratio < 2.0: ICA EDV<40 cm/s. 2. Less than 50% stenosis=ICA PSV < 180 cm/s: ratio < 2.0: ICA EDV<40 cm/s. 3. 50 to 69% stenosis=ICA PSV of 180 to 230 cm/s: ration 2.0 ? 4.0: ICA EDV 40-100 cm/s. PSV 125-180 cm/sec and ICA/CCA PSV Ratio ? 2.0 is also consistent with 50-69% stenosis 4. Greater than 70% stenosis to near occlusion= ICA PSV > 230 cm/s: ratio > 4.0: ICA EDV > 100 cm/s. 5. Near occlusion= ICA PSV velocities may be low or undetectable: variable ratio and ICA EDV. 6. Total occlusion=unable to detect flow. [facility], , 09/12/2024 10:38 AM
--- NOTE | 2024-09-13 10:18 | CT ---
EXAMINATION TYPE: CT chest w con DATE OF EXAM: 09/12/2024 8:26 AM COMPARISON: 02/06/2024 CLINICAL INDICATION: Male, 74 years old with history of R91.1 PULM NOD I34.0 MITRAL INSUF I65.23, Pul monary nodule, mitral insufficiency TECHNIQUE: Axial images were obtained at 5 mm thick sections. Reconstructed images are reviewed on [employer] computer in the coronal plane. Contrast used:80 mL of Isovue 300 with IV Contrast, (none if empty) Oral contrast used: (none if empty) CT DLP: 520 mGycm, Automated exposure control for dose reduction was used. FINDINGS: Portion of the thyroid visualized is normal. There is a 0.4 cm nodule right midlung. Series 4 image 27 is present previously. There is a 0.4 cm no dule lateral right midlung. Series 4 image 30. Present previously. No enlarged mediastinal or hilar adenopathy is evident. The ascending aorta diameter at the level o f the main pulmonary artery is 3.7 cm. The main pulmonary artery diameter at the bifurcation is 2.9 cm. No significant coronary artery calcifications. Limited CT sections are obtained through the upper abdomen. Abdomen is essentially unremarkable. IMPRESSION: 1. Stable small nodules. [facility], , 09/13/2024 10:15 AM
== END | disposition home or self-care (01) ==
LOC: RADCTMAIN 06:28
PROVIDERS: ATTEND Internal Medicine
DX: I34.0 Nonrheumatic mitral (valve) insufficiency (principal); I65.23 Occlusion and stenosis of bilateral carotid arteries
CPT/HCPCS: 82565; 84520; 93880; 71260; 36415; Q9967